=== PATIENT | male | born 1965 | race Caucasian/White ===

== ENCOUNTER → 2017-08-30 | Outpatient (CLI) | payer OTHER ==
--- NOTE | 2017-08-30 11:54 | US ---
EXAMINATION TYPE: US abdomen complete DATE OF EXAM: 08/30/2017 COMPARISON: CT here [address] last week at [facility] that showed liver mass. CLINICAL HISTORY: R10.32 LLQ Abdominal Pain, R93.2 Abnormal Diagnost. EXAM MEASUREMENTS: Liver Length: 11.97 cm Gallbladder Wall: 0.15 cm CBD: 0.14 cm Spleen: 9.6 cm Right Kidney: 12.3 x 3.8 x 6.2 cm Left Kidney: 10.5 x 6.4 x 5.6 cm Pancreas: Tail obscured by overlying bowel gas Liver: Avascular, hyperechoic oval lesion measuring 1.2 x 0.9 x 1.1cm. Retrospectively on the exam o f 06/21/2015 there is a hypoechoic hepatic lesion measuring proximally 1.0 cm that may correspond. Gallbladder: wnl Evidence for sonographic Harrington's sign: No CBD: wnl Spleen: wnl Right Kidney: kidney stone measuring 0.8 x 0.6 x 0.7cm Left Kidney: No hydronephrosis or masses seen Upper IVC: wnl Abd Aorta: portions of proximal obscured by overlying bowel gas, otherwise wnl The intrahepatic portion of the IVC and proximal abdominal aorta are within normal limits. There is no evidence of cholelithiasis. Common bile duct is unremarkable. The visualized portions of the forde creas are homogenous. The spleen is unremarkable. Kidneys are symmetric and free of hydronephrosis. No renal lesions are seen. IMPRESSION: 1. Hyperechoic 1.2 cm hepatic lesion that in a patient with no history of hepatocellular disease and within this age group most commonly represents a hemangioma. However confirmation with three-phase CT abdomen could be performed if not definitively characterized on the outside CT. 2. Right-sided nonobstructing renal calculus measuring 8 mm.
== END | disposition home or self-care (01) ==
LOC: RADUSWWP 10:43
PROVIDERS: ATTEND Family Medicine
DX: N20.0 Calculus of kidney (principal); K76.9 Liver disease, unspecified
CPT/HCPCS: 76700

== ENCOUNTER → 2017-09-18 | Outpatient (CLI) | payer OTHER ==
--- NOTE | 2017-09-18 19:58 | CT ---
EXAMINATION TYPE: CT abdomen wo/w con, three-phase liver protocol. DATE OF EXAM: 09/18/2017 COMPARISON: 06/21/2015. Correlation ultrasound 08/30/2017. HISTORY: 51-year-old male RUQ abd pain, nausea, vomiting and diarrhea. TECHNIQUE: Contiguous axial scanning of the abdomen before and after administration of 100 ml Omnipaq ue 300 IV contrast. Late arterial phase, portal venous phase, and delayed kidney images were obtained . Coronal/sagittal reconstructions performed. CT DLP: 2411 mGycm Automated exposure control for dose reduction was used. FINDINGS: The heart is normal size without pericardial effusion. Lung bases clear without pleural effusion. Liver is enlarged measuring 20.2 cm. No significant fatty infiltration seen. A 1.2 cm hypodense lesion is redemonstrated along the right hepatic dome corresponding to the echogen ic ultrasound finding. This finding is unchanged from 06/21/2015. The enhancement characteristics live in indeterminate at the lesion remains hypodense throughout all 4 phases of imaging. There is no prog ressive filling. No suspicious hypervascularity or accelerated washout. No other liver lesion is seen . Portal venous system is patent. No biliary ductal dilatation. Gallbladder, adrenal glands, left kidney, spleen, and pancreas appear within normal limits. 7 mm nonobstructive right lower pole renal calculus. Symmetric uptake and excretion of contrast from both kidneys. No dilated small bowel, free fluid, or free air. No mesenteric or retroperitoneal lymphadenopathy. Th ere is moderate stool burden without pericolonic inflammatory change. Bones: Moderate to advanced degenerative disc disease and endplate degenerative change at L2-L3 with grade 1 retrolisthesis at this level. IMPRESSION: 1. NO SUSPICIOUS ENHANCEMENT CHARACTERISTICS OF THE 1.2 CM HYPODENSE LESION IN THE RIGHT HEPATIC DOME . THIS WAS ALSO PRESENT ON 06/21/2015 COMPATIBLE WITH A BENIGN ETIOLOGY. THE LESION REMAINS INDETERMIN ATE BUT THE FAVORED DIFFERENTIAL CONSIDERATIONS GIVEN THE ULTRASOUND APPEARANCE IS AN ATYPICAL CHITRA IOMA OR PROTEINACEOUS CYST. 2. HEPATOMEGALY (20.2 CM). 3. 7 MM NONOBSTRUCTIVE RIGHT RENAL CALCULUS. 4. MODERATE TO ADVANCED DEGENERATIVE DISC DISEASE AT L2-L3.
== END | disposition home or self-care (01) ==
LOC: RADCTMAIN 15:28
PROVIDERS: ATTEND Family Medicine
DX: N20.0 Calculus of kidney (principal); R16.0 Hepatomegaly, not elsewhere classified
CPT/HCPCS: 74170; Q9967

== ENCOUNTER 2019-11-09 11:08 | Emergency (ER) | payer OTHER ==
[2019-11-09 11:12] VITALS: RESP 18; TEMP 98.6
[2019-11-09] MEDS ORDERED: DIPH,PERTUS(ACELL)TETVAC-LF 0.5 ML VIAL IM ONE (11:50)
[2019-11-09] MEDS ORDERED: AMOXIC-POT CLAV 875MG STARTER PACK 2 TAB BTL PO STA (11:50)
--- NOTE | 2019-11-09 12:13 | ED ---
General Adult HPI - General Chief complaint: Animal Bite Stated complaint: cat bite Time Seen by Provider: 11/09/19 11:38 Source: patient, RN notes reviewed Mode of arrival: ambulatory Limitations: no limitations - History of Present Illness Initial comments: 53 year old male presents to the emergency dept for a chief complaint of cat bite. Patient states he broke his cat and his dog up from a fight and states he has a cat bite to the left side of the neck as well as a bite to the right finger. States this all happened last night. Patient states he is not up-to-date on tetanus. Patient reports that both animals are immunized against rabies.Patient has no other complaints at this time including shortness of breath, chest pain, abdominal pain, nausea or vomiting, headache, or visual changes. - Related Data Home Medications Medication Instructions Recorded Confirmed Loratadine [Claritin] 10 mg PO DAILY 06/21/15 06/22/15 Meloxicam [Mobic] 15 mg PO DAILY 06/21/15 06/22/15 Bisoprolol Fumarate 5 mg PO BID 06/22/15 06/22/15 Escitalopram [Lexapro] 20 mg PO DAILY 06/22/15 06/22/15 Previous Rx's Medication Instructions Recorded Famotidine [Pepcid] 20 mg PO BID #60 tab 06/25/15 Amoxicillin/Potassium Clav 1 tab PO Q12HR #20 tab 11/09/19 [Augmentin 875-125 Tablet] Allergies Allergy/AdvReac Type Severity Reaction Status Date / Time No Known Allergies Allergy Verified 11/09/19 11:12 Review of Systems ROS Statement: Those systems with pertinent positive or pertinent negative responses have been documented in the HPI. ROS Other: All systems not noted in ROS Statement are negative. Past Medical History Past Medical History: Hypertension Additional Past Medical History / Comment(s): gout, shingles History of Any Multi-Drug Resistant Organisms: None Reported Additional Past Surgical History / Comment(s): left elbow sx Past Anesthesia/Blood Transfusion Reactions: No Reported Reaction Past Psychological History: Depression Smoking Status: Never smoker Past Alcohol Use History: None Reported Past Drug Use History: None Reported - Past Family History Father Family Medical History: Cancer Additional Family Medical History / Comment(s): gallbladder Mother Family Medical History: Cancer Additional Family Medical History / Comment(s): throat Brother(s) Additional Family Medical History / Comment(s): his brother has crohns colitis General Exam Limitations: no limitations General appearance: alert, in no apparent distress Head exam: Present: atraumatic, normocephalic, normal inspection Eye exam: Present: normal appearance, PERRL, EOMI. Absent: scleral icterus, conjunctival injection, periorbital swelling ENT exam: Present: normal exam, mucous membranes moist Neck exam: Present: full ROM, other (Patient has a 5 cm x 5 cm area of erythema noted to the left side of the neck without laceration. No significant edema.). Absent: tenderness, meningismus, lymphadenopathy Respiratory exam: Present: normal lung sounds bilaterally. Absent: respiratory distress, wheezes, rales, rhonchi, stridor Cardiovascular Exam: Present: regular rate, normal rhythm, normal heart sounds. Absent: systolic murmur, diastolic murmur, rubs, gallop, clicks GI/Abdominal exam: Present: soft, normal bowel sounds. Absent: distended, tenderness, guarding, rebound, rigid Extremities exam: Present: normal capillary refill (Capillary refill less than 2 seconds in the right second digit.), other (Patient has a superficial laceration to the distal thighs of the right digit. This does involve the nail. There is no streaking or spreading redness up the right finger to the right hand.) Course Vital Signs 11/09/19 11:10 Temperature 98.6 F Pulse Rate 106 H Respiratory 18 Rate Blood Pressure 156/97 O2 Sat by Pulse 98 Oximetry Medical Decision Making - Medical Decision Making Patient has cat bite to the left side of the neck as well as the right second digit distal phalanx. There is no erythema of the finger. Patient is able to flex all joints in the finger and wrist. There is no tenderness along the palmar aspect of the finger. Patient does have an area of about 5 x 5 cm erythema on the left side of the neck however no significant edema. No airway Rice whatsoever. Patient will be treated with outpatient antibiotics. Updated on tetanus. Animals or updated on rabies. He will follow up with primary care in 1-2 days. I did discuss very strict return parameters with patient given [place] become serious. He is aware of this and will return. Disposition Clinical Impression: Cat bite Disposition: HOME SELF-CARE Condition: Good Instructions (If sedation given, give patient instructions): Animal Bite (ED) Additional Instructions: Please take Augmentin twice a day as directed. Prescription was sent here pharmacy. Monitor for worsening symptoms. If redness is spreading after 24 hours or you getting fevers or worsening pain return here to the emergency room immediately. Prescriptions: Amoxicillin/Potassium Clav [Augmentin 875-125 Tablet] 1 tab PO Q12HR #20 tab Is patient prescribed a controlled substance at d/c from ED?: No Referrals: Gina Holder MD [REFERRING] - 1-2 days Time of Disposition: 12:26
--- NOTE | 2019-11-09 12:18 | XR ---
EXAMINATION TYPE: XR finger RT DATE OF EXAM: 11/09/2019 COMPARISON: NONE HISTORY: Pain TECHNIQUE: Three views are submitted. FINDINGS: The osseous structures are intact. Severe arthropathy of the MCP and DIP visualized joints. Soft tiss ue calcification noted. No acute fracture. Soft tissue injury not excluded.. IMPRESSION: 1. No definite acute fracture or dislocation if symptoms persist, follow-up study in 7 to 10 days wo uld be suggested. 2. Severe arthropathy.
[2019-11-09 12:35] VITALS: BP 145/90; PULSE 98
== END 2019-11-09 12:35 | disposition home or self-care (01) ==
LOC: EC 11:08
DX: S11.95XA Open bite of unspecified part of neck, initial encounter (principal); S61.310A Laceration without foreign body of right index finger with damage to nail, initial encounter; I10 Essential (primary) hypertension; F32.9 Major depressive disorder, single episode, unspecified; Z79.1 Long term (current) use of non-steroidal anti-inflammatories (NSAID); Z79.899 Other long term (current) drug therapy; Z23 Encounter for immunization; W55.01XA Bitten by cat, initial encounter
CPT/HCPCS: 90471; 90715; 99283

== ENCOUNTER 2021-01-08 13:10 | Emergency (ER) | payer OTHER ==
[2021-01-08 13:31] VITALS: TEMP 98.2
[2021-01-08] MEDS ORDERED: ACETAMINOPHEN TAB 500 MG TAB PO STA (13:55)
[2021-01-08] MEDS ORDERED: SODIUM CHLORIDE 0.9% 1,000 ML IV STA (13:55)
[2021-01-08] MEDS ORDERED: diphenhydrAMINE 50 MG/ML 1 ML VIAL IVP STA (13:55)
[2021-01-08] MEDS ORDERED: METOCLOPRAMIDE 5 MG/ML 2 ML VIAL IVP STA (13:55)
--- NOTE | 2021-01-08 14:01 | ED ---
General Adult HPI - General Chief complaint: Headache Stated complaint: Headache Time Seen by Provider: 01/08/21 13:52 Source: patient, RN notes reviewed, old records reviewed Mode of arrival: ambulatory Limitations: no limitations - History of Present Illness Initial comments: 55-year-old male presenting for evaluation of headache. This is predominantly an occipital headache. His been present for 5 days. This was gradual in onset. Patient states he does have migraine history but states this headache is somewhat different. He denies thunderclap headache. Denies fever. He's had some chest congestion as well with mild cough. He has not been vaccinated against coronavirus. He denies fever. Denies abdominal pain nausea vomiting. - Related Data Home Medications Medication Instructions Recorded Confirmed Loratadine [Claritin] 10 mg PO DAILY 06/21/15 06/22/15 Meloxicam [Mobic] 15 mg PO DAILY 06/21/15 06/22/15 Bisoprolol Fumarate 5 mg PO BID 06/22/15 06/22/15 Escitalopram [Lexapro] 20 mg PO DAILY 06/22/15 06/22/15 Previous Rx's Medication Instructions Recorded Famotidine [Pepcid] 20 mg PO BID #60 tab 06/25/15 Amoxicillin/Potassium Clav 1 tab PO Q12HR #20 tab 11/09/19 [Augmentin 875-125 Tablet] Allergies Allergy/AdvReac Type Severity Reaction Status Date / Time No Known Allergies Allergy Verified 01/08/21 13:30 Review of Systems ROS Statement: Those systems with pertinent positive or pertinent negative responses have been documented in the HPI. ROS Other: All systems not noted in ROS Statement are negative. Past Medical History Past Medical History: Hypertension Additional Past Medical History / Comment(s): gout, shingles History of Any Multi-Drug Resistant Organisms: None Reported Additional Past Surgical History / Comment(s): left elbow sx Past Anesthesia/Blood Transfusion Reactions: No Reported Reaction Past Psychological History: Depression Smoking Status: Never smoker Past Alcohol Use History: None Reported Past Drug Use History: Marijuana - Past Family History Father Family Medical History: Cancer Additional Family Medical History / Comment(s): gallbladder Mother Family Medical History: Cancer Additional Family Medical History / Comment(s): throat Brother(s) Additional Family Medical History / Comment(s): his brother has crohns colitis General Exam Limitations: no limitations General appearance: alert, in no apparent distress Head exam: Present: atraumatic, normocephalic Eye exam: Present: normal appearance, PERRL ENT exam: Present: normal exam Neck exam: Present: normal inspection. Absent: tenderness, meningismus Respiratory exam: Present: normal lung sounds bilaterally, respiratory distress Cardiovascular Exam: Present: regular rate, normal rhythm. Absent: bradycardia GI/Abdominal exam: Present: soft. Absent: distended, tenderness, guarding Extremities exam: Present: normal inspection, normal capillary refill. Absent: pedal edema Neurological exam: Present: alert, oriented X3, CN II-XII intact. Absent: motor sensory deficit Psychiatric exam: Present: normal affect, normal mood Skin exam: Present: warm, dry, intact. Absent: cyanosis, diaphoretic Course Vital Signs 01/08/21 01/08/21 01/08/21 13:30 15:06 15:49 Temperature 98.2 F Pulse Rate 93 88 89 Respiratory 18 16 16 Rate Blood Pressure 165/110 142/95 152/107 O2 Sat by Pulse 96 98 99 Oximetry - Reevaluation(s) Reevaluation #1: 01/08/21 16:25 Headache improved. Patient not driving. EKG Findings - EKG Comments: EKG Findings:: EKG: Normal sinus rhythm, rate 78, IA interval 166, QRS duration 84, QTC [address] segment elevation. Medical Decision Making - Medical Decision Making 55-year-old male presenting with headache, chest congestion. Headache is occipital. He is afebrile. This was a gradual onset but the patient has never had headache similar to this in the past. Both CT and CT angiography of performed which are negative. He has normal CBC, normal CMP, EKG is sinus rhythm. Has headache is improved with symptomatic treatment while in the emerg ency department. Return parameters are discussed. He will follow with his primary care physician. - Lab Data Result diagrams: 01/08/21 14:12 01/08/21 14:12 Lab Results 01/08/21 01/08/21 01/08/21 Range/Units 14:12 14:12 14:12 WBC 11.8 H (3.8-10.6) k/uL RBC 5.07 (4.30-5.90) m/uL Hgb 15.8 (13.0-17.5) gm/dL Hct 45.9 (39.0-53.0) % MCV 90.7 (80.0-100.0) fL MCH 31.3 (25.0-35.0) pg MCHC 34.5 (31.0-37.0) g/dL RDW 13.8 (11.5-15.5) % Plt Count 341 (150-450) k/uL MPV 7.8 Neutrophils % 66 % Lymphocytes % 22 % Monocytes % 7 % Eosinophils % 2 % Basophils % 1 % Neutrophils # 7.8 H (1.3-7.7) k/uL Lymphocytes # 2.6 (1.0-4.8) k/uL Monocytes # 0.8 (0-1.0) k/uL Eosinophils # 0.2 (0-0.7) k/uL Basophils # 0.1 (0-0.2) k/uL Sodium 137 (137-145) mmol/L Potassium 4.1 (3.5-5.1) mmol/L Chloride 102 (98-107) mmol/L Carbon Dioxide 25 (22-30) mmol/L Anion Gap 10 mmol/L BUN 15 (9-20) mg/dL Creatinine 0.77 (0.66-1.25) mg/dL Est GFR (CKD-EPI)AfAm >90 (>60 ml/min/1.73 sqM) Est GFR (CKD-EPI)NonAf >90 (>60 ml/min/1.73 sqM) Glucose 102 H (74-99) mg/dL Calcium 10.1 (8.4-10.2) mg/dL Magnesium 2.0 (1.6-2.3) mg/dL Troponin I (0.000-0.034) ng/mL Coronavirus (PCR) Not Detected (Not Detectd) 01/08/21 Range/Units 14:12 WBC (3.8-10.6) k/uL RBC (4.30-5.90) m/uL Hgb (13.0-17.5) gm/dL Hct (39.0-53.0) % MCV (80.0-100.0) fL MCH (25.0-35.0) pg MCHC (31.0-37.0) g/dL RDW (11.5-15.5) % Plt Count (150-450) k/uL MPV Neutrophils % % Lymphocytes % % Monocytes % % Eosinophils % % Basophils % % Neutrophils # (1.3-7.7) k/uL Lymphocytes # (1.0-4.8) k/uL Monocytes # (0-1.0) k/uL Eosinophils # (0-0.7) k/uL Basophils # (0-0.2) k/uL Sodium (137-145) mmol/L Potassium (3.5-5.1) mmol/L Chloride (98-107) mmol/L Carbon Dioxide (22-30) mmol/L Anion Gap mmol/L BUN (9-20) mg/dL Creatinine (0.66-1.25) mg/dL Est GFR (CKD-EPI)AfAm (>60 ml/min/1.73 sqM) Est GFR (CKD-EPI)NonAf (>60 ml/min/1.73 sqM) Glucose (74-99) mg/dL Calcium (8.4-10.2) mg/dL Magnesium (1.6-2.3) mg/dL Troponin I <0.012 (0.000-0.034) ng/mL Coronavirus (PCR) (Not Detectd) Disposition Clinical Impression: Headache Disposition: HOME SELF-CARE Instructions (If sedation given, give patient instructions): Acute Headache (ED), Hypertension (ED) Is patient prescribed a controlled substance at d/c from ED?: No Referrals: None,Stated [Primary Care Provider] - 1-2 days Gina Holder MD [REFERRING] - 1-2 days Time of Disposition: 16:24
[2021-01-08 14:29] LABS: African American GFR (CKD) >90 (>60 ml/min/1.73 sqM); Anion Gap 10 mmol/L; Basophils # (A) 0.1 k/uL (0-0.2); Basophils % (A) 1 %; Blood Urea Nitrogen 15 mg/dL (9-20); Calcium 10.1 mg/dL (8.4-10.2); Carbon Dioxide 25 mmol/L (22-30); Chloride 102 mmol/L (98-107); Eosinophils # (A) 0.2 k/uL (0-0.7); Eosinophils % (A) 2 %; Glucose 102 mg/dL (74-99); HCT 45.9 % (39.0-53.0); HGB 15.8 gm/dL (13.0-17.5); Lymphocytes # (A) 2.6 k/uL (1.0-4.8); Lymphocytes % (A) 22 %; MCH 31.3 pg (25.0-35.0); MCHC 34.5 g/dL (31.0-37.0); MCV 90.7 fL (80.0-100.0); Mean Platelet Volume 7.8; Monocytes # (A) 0.8 k/uL (0-1.0); Monocytes % (A) 7 %; Neutrophils # (A) 7.8 k/uL (1.3-7.7); Neutrophils % (A) 66 %; Non-African American GFR(CKD) >90 (>60 ml/min/1.73 sqM); Platelet Count 341 k/uL (150-450); Potassium 4.1 mmol/L (3.5-5.1); RBC 5.07 m/uL (4.30-5.90); RDW 13.8 % (11.5-15.5); Sodium 137 mmol/L (137-145); WBC 11.8 k/uL (3.8-10.6)
--- NOTE | 2021-01-08 14:48 | CT ---
EXAMINATION TYPE: CT brain wo con DATE OF EXAM: 01/08/2021 COMPARISON: None HISTORY: Severe headache for [address] DLP: 1104.4 mGycm Automated exposure control for dose reduction was used. Ventricles have normal size. There is no mass effect nor midline shift. There is no sign of intracran ial hemorrhage. Calvarium is intact. There is no evidence of cerebral edema. There is normal aeration of the mastoid sinuses. IMPRESSION: Normal unenhanced head CT scan.
[2021-01-08 15:06] VITALS: RESP 16
[2021-01-08] MEDS ORDERED: KETOROLAC 15 MG/ML 1 ML VIAL IVP STA (15:13)
--- NOTE | 2021-01-08 16:19 | CT ---
EXAMINATION TYPE: CT angio head neck DATE OF EXAM: 01/08/2021 COMPARISON: None HISTORY: Headache CT DLP: 664.6 mGycm Automated exposure control for dose reduction was used. CONTRAST: Performed with IV Contrast, patient injected with 65 mL of Isovue 370. Images obtained from the aortic arch to the vertex of the brain with IV contrast. There is 3-D post p rocessed images. There is normal branching pattern of the great vessels on the aortic arch. There is arterial flow in both subclavian arteries. There is arterial flow in the common internal and external carotid arteries bilaterally. There is wide patency of the carotid artery bifurcations. There is arterial flow in bot h vertebral arteries. There is arterial flow in the vertebrobasilar artery system. There is no evidence of carotid or vertebral artery aneurysm or dissection. There is arterial flow in the anterior middle and posterior cerebral arteries. There is no evidence o f intracranial arterial stenosis. I see no aneurysm or neovascularity. There is no mass effect. There is normal enhancement of the venous sinuses. IMPRESSION: Negative CT angiogram of the neck. Negative CT angiogram of the brain.
[2021-01-08 16:36] VITALS: BP 150/97; PULSE 82
== END 2021-01-08 16:39 | disposition home or self-care (01) ==
LOC: EC 13:10
DX: R51.9 Headache, unspecified (principal); R09.89 Other specified symptoms and signs involving the circulatory and respiratory systems; R05 Cough; I10 Essential (primary) hypertension; Z79.899 Other long term (current) drug therapy; Z20.822 Contact with and (suspected) exposure to COVID-19; Z86.69 Personal history of other diseases of the nervous system and sense organs; Z79.1 Long term (current) use of non-steroidal anti-inflammatories (NSAID)
CPT/HCPCS: 36415; 93005; 80048; 83735; 84484; 85025; 87635; 70496; 70450; 70498; 99284; 96374; 96375; 96361; J1200; J2765; J1885; Q9967

== ENCOUNTER 2021-01-19 13:50 | Emergency (ER) | payer OTHER ==
[2021-01-19] MEDS ORDERED: Acetaminophen-Codeine 300-30mg TAB PO STA (14:33)
--- NOTE | 2021-01-19 15:32 | XR ---
EXAMINATION TYPE: XR shoulder complete RT DATE OF EXAM: 01/19/2021 COMPARISON: None HISTORY: Pain TECHNIQUE: 3 view right shoulder FINDINGS: No acute fractures or dislocations are evident. Humeral head articulates with the glenoid. Acromioclavicular junction. Follow up exams can be performed 7-10 days from acute trauma for continue d pain. IMPRESSION: 1. No acute abnormality right shoulder
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
[2021-01-19] MEDS ORDERED: GELATIN SPONGE,ABSORB (LARGE) 1 EACH SPONGE TOPICAL STA (15:55)
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
[2021-01-19] MEDS ORDERED: CEPHALEXIN 500MG STARTER PACK 4 CAP BTL PO STA (16:49)
[2021-01-19] MEDS ORDERED: ACET/COD 300 MG/30 MG STARTER PACK 6 TAB BTL PO STA (16:49)
[2021-01-19] MEDS ORDERED: DIPH,PERTUS(ACELL)TETVAC-LF 0.5 ML VIAL IM ONE (16:50)
[2021-01-19 17:04] VITALS: BP 135/74; PULSE 67; RESP 16; TEMP 98.1
== END 2021-01-19 17:04 | disposition home or self-care (01) ==
LOC: EC 13:50
DX: S52.124A Nondisplaced fracture of head of right radius, initial encounter for closed fracture (principal); M25.331 Other instability, right wrist; I10 Essential (primary) hypertension; Z79.899 Other long term (current) drug therapy; Z23 Encounter for immunization; V18.2XXA Unspecified pedal cyclist injured in noncollision transport accident in nontraffic accident, initial encounter; Y93.55 Activity, bike riding; Y92.219 Unspecified school as the place of occurrence of the external cause
CPT/HCPCS: 29105; 90471; 90715; 99283

== ENCOUNTER → 2021-01-27 | Outpatient (CLI) | payer OTHER ==
--- NOTE | 2021-01-27 14:08 | EST ---
EXERCISE STRESS AGE: 55 SEX: M HT: 5'11" WT: 225 lbs. PROTOCOL: Ruy STAGE: 3 DURATION OF EXERCISE: 6:12 HEART RATE REST: 75 BLOOD PRESSURE REST: 174/112 MAXIMUM HEART RATE ACHIEVED: 122 MAXIMUM BLOOD PRESSURE: 236/101 85% MPHR: 142 100% MPHR: 167 METS: 7.5 INDICATIONS: Chest pain CLINICAL INFORMATION: Baseline rhythm is a sinus mechanism, rate of 75, normal axis and intervals, poor R- wave progression; cannot exclude anteroseptal myocardial infarction. Baseline blood pressure 174/112 mmHg. Patient exercised on Ruy protocol for 6 minutes 12 seconds, reaching a peak rate of 122 beats per minute, which is equal 73% maximum predicted heart rate. Peak blood pressure 236/101 mmHg. Test was stopped because of fatigue and dizziness. There was no chest pain. Electrocardiographic monitoring revealed no evidence of diagnostic ischemic ST deviation. CONCLUSION: 1. Decreased exercise tolerance. 2. Hypertensive response to exercise. 3. Nondiagnostic electrocardiographic stress testing secondary to the inability to achieve 85% of maximum predicted heart rate. At the rate achieved, there was no evidence of stress-induced ischemia. MMODL / IJN: [id number] /
== END | disposition home or self-care (01) ==
LOC: RADNMMAIN 08:58
PROVIDERS: ATTEND Internal Medicine
DX: R06.02 Shortness of breath (principal)
CPT/HCPCS: 93017

== ENCOUNTER 2021-10-06 10:55 | Day surgery (SDC) | payer OTHER ==
[2021-10-05 12:08] VITALS: BMI 30.7
--- NOTE | 2021-10-06 07:46 | P.HPOR ---
History of Present Illness H&P Date: 10/06/21 Chief Complaint: Right wrist arthritis s/p limited wrist fusion with K-wires Subjective: This is a 55 year old male that presents today for a post-operative visit after undergoing right wrist scaphoid excision and 4 corner fusion and endoscopic carpal tunnel release on 08/10/21. He has been in a cast since his last post op visit and has noticed improvement in his swelling and pain. He is 7 weeks out from surgery and tentatively scheduled for k-wire removal at the 8 week lucy on 10/06/21. Physical Examination: RUE: AIN/PIN/Radial/Ulnar/Median motor intact. Radial/Ulnar/Median SILT. 2+/4 Radial/Ulnar pulses palpated. Incision sites well healed. Able to make full fist with minimal pain. Imaging: X-Rays of the right wrist demonstrate good consolidation at arthrodesis site, increased from last visit. Impression: 1.) S/P Right wrist scaphoid excision and 4 corner fusion and endoscopic carpal tunnel release Plan: Diagnosis and treatment options and were discussed with the patient. He is scheduled to remove pins in 1 week in the OR under MAC anesthesia. He is to remain non-weight bearing until hardware is removed. -Foreign Dang DO Orthopedic Hand/Upper Extremity Surgeon Past Medical History Past Medical History: Hypertension, Osteoarthritis (OA) Additional Past Medical History / Comment(s): gout, shingles x2., ulcerative colitis, occasional gerd., pain right wrist. History of Any Multi-Drug Resistant Organisms: None Reported Past Surgical History: Orthopedic Surgery Additional Past Surgical History / Comment(s): left elbow sx., colonoscopy, right wrist surgery with carpal tunnel release (08/10/21) Past Anesthesia/Blood Transfusion Reactions: No Reported Reaction, Motion Sickness Past Psychological History: Depression Smoking Status: Never smoker, Second hand smoke exposure Past Alcohol Use History: None Reported Past Drug Use History: Marijuana Additional Drug Use History / Comment(s): current marijuana use - Past Family History Father Family Medical History: Cancer Additional Family Medical History / Comment(s): gallbladder cancer & prostate cancer Mother Family Medical History: Cancer Additional Family Medical History / Comment(s): throat cancer Brother(s) Additional Family Medical History / Comment(s): crohns colitis Medications and Allergies Home Medications Medication Instructions Recorded Confirmed Type Escitalopram [Lexapro] 20 mg PO DAILY 06/22/15 10/05/21 History amLODIPine BESYLATE/BENAZEPRIL 1 cap PO DAILY 08/08/21 10/05/21 History [Lotrel 5-10 MG] Albuterol Inhaler [Ventolin Hfa 1 puff INHALATION RT-QID PRN 10/05/21 10/05/21 History Inhaler] Allergies Allergy/AdvReac Type Severity Reaction Status Date / Time No Known Allergies Allergy Verified 10/05/21 11:43 Physical Examination Osteopathic Statement: *. No significant issues noted on an osteopathic structural exam other than those noted in the History and Physical/Consult.
[~2021-10-06 10:55] MED LIST: DEXAMETHASONE SOD PHOSPHATE 4 MG/ML 1 ML VIAL IV ONE; HYDROmorphone 0.5 MG/0.5 ML SYRINGE IVP PRN; LACTATED RINGERS 1,000 ML IV SCH; ONDANSETRON 4 MG/2 ML VIAL IVP ONE
[2021-10-06 11:25] VITALS: TEMP 98.2
[2021-10-06] MEDS ORDERED: LIDOCAINE 1%-EPI 1:100,000 20 ML VIAL SQ ONE (12:20)
[2021-10-06] MEDS ORDERED: BUPIVACAINE (PF) 0.5% 30 ML VIAL SQ ONE (12:20)
[2021-10-06 12:49] VITALS: RESP 16
[2021-10-06 13:28] VITALS: BP 140/70; PULSE 62
--- NOTE | 2021-10-06 21:01 | P.OP ---
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 Procedure(s) Performed: 1.) Right wrist removal of hardware, deep x 4 Anesthesia: MAC Surgeon: Foreign Dang Estimated Blood Loss (ml): 10 Pathology: none sent Condition: stable Disposition: PACU Description of Procedure: This is a 55 year old male with a history of right SLAC wrist arthritis who underwent scaphoid excision and four corner fusion with temporary K-wire pinning 8 weeks prior, he presents today for surgical removal of the temporary k-wire implants. Risks and benefits of surgery were discussed with the patient including bleeding, damage to surrounding tissue, infection, need for further surgery as well as risks of anesthesia including pulmonary embolism and even and the patient wished to proceed with surgical intervention. The patient was seen in the pre-operative area by myself. Consent and H&P were completed and updated. The correct extremity was marked in the pre-operative area by myself and all other questions were answered. Operative Narrative: The patient was brought to the operating room by the department of anesthesia. They remained on the portable stretcher and a rolling hand table was brought to the side of the operative extremity. Pre-operative time out was performed indicating the correct patient, procedure and laterality. All in the room agreed. Pre-operative antibiotics were given prior to skin incision. The patient was then drifted off to sleep by the department of anesthesia. A nonsterile tourniquet was then applied to the operative extremity. A 50:50 mixture of 0.5% bupivacaine and 1% lidocaine was used for local block around pin sites, 6ccs total and the right upper extremity was then prepped and draped in normal sterile fashion. Mini C-arm was utilized to confirm signs of good fusion at 4 corner fusion site. K-wires were able to be palpated underneath the skin. Tourniquet was inflated to 250mmHG. A small longitudinal incision was made over the area of prominence on the dorsal hand. Hemostat was used to palpate and capture the tip of the k-wire, longitudinal traction was applied and the capito-lunate pin was removed with ease, the same was done for the other capito-lunate pain. Attention was then drawn to the ulnar aspect of the wrist. K-wires were palpated and small longitudinal incision was made and hemostat was used to palpate and capture the tip of the k-wire, in-line traction was applied and triquetral lunate and the hamate-capitate pin was also removed with ease. Mini C-arm was used to confirm complete removal of all pins. The wrist was then ranged and the four corner fusion site was moving as a single unit. The incisions were closed with 4-0 nylon suture and a soft dressing consisting of adaptic, 4x4s, cast padding and kathy wrap was applied. Tourniquet was let down and the hand had immediate perfusion. The patient was then woken by the department of anesthesia and transferred to PACU in stable condition. Foreign Dang DO Orthopedic Hand/Upper Extremity Surgeon
== END 2021-10-06 13:36 | disposition home or self-care (01) ==
LOC: OR 10:55
PROVIDERS: ATTEND Orthopaedic Surgery Hand Surgery
DX: Z47.2 Encounter for removal of internal fixation device (principal); Z98.1 Arthrodesis status; I10 Essential (primary) hypertension; M19.90 Unspecified osteoarthritis, unspecified site; M10.9 Gout, unspecified; K21.9 Gastro-esophageal reflux disease without esophagitis; Z77.22 Contact with and (suspected) exposure to environmental tobacco smoke (acute) (chronic); Z86.19 Personal history of other infectious and parasitic diseases; Z87.19 Personal history of other diseases of the digestive system; Z98.890 Other specified postprocedural states; Z80.42 Family history of malignant neoplasm of prostate; Z80.8 Family history of malignant neoplasm of other organs or systems; Z83.79 Family history of other diseases of the digestive system; Z79.899 Other long term (current) drug therapy; F32.A Depression, unspecified
CPT/HCPCS: 20680; J1100; J0690; J2405

== ENCOUNTER 2023-12-13 04:30 | Emergency (ER) | payer BC ==
[2023-12-13] MEDS ORDERED: lisinopriL 10 MG TAB ONE (05:54)
== END 2023-12-13 06:45 | disposition home or self-care (01) ==
LOC: EC 04:30
CPT/HCPCS: 93005; 99283